=== PATIENT | female | born 1975 | race Caucasian/White ===

== ENCOUNTER → 2019-02-12 | Outpatient (CLI) | payer BC ==
[~2019-02-12] MED LIST: BUPR300T43 PO; DOCU100C37 PO; FLUO40CA PO; IBUP-1780 PO; LOSA1TAB26 PO; NALT1TAB PO; OMEP40CA36 PO; OXYC-465 PO; SPIR50TA4 PO
--- NOTE | 2019-02-12 11:36 | Diagnostic Imaging Report ---
INDICATION: Routine screening. COMPARISON: Comparison is made with prior mammograms from 10/06/2015 and 10/10/2013. 2-D and 3-D bilateral screening mammography was performed. The current study was also evaluated with a Computer Aided Detection (CAD) system. 3-D tomosynthesis was also performed and reviewed. FINDINGS: Scattered fibroglandular densities are identified bilaterally. No mass or malignant-appearing microcalcifications are seen. There are benign calcifications present. Axillae are unremarkable. IMPRESSION: No mammographic features suspicious for malignancy are identified. ACR BI-RADS Category 2: Benign findings. Result letter will be mailed to the patient. Note: At least 10% of breast cancer is not imaged by mammography. Dictated by: Dictated on workstation # [id number]
== END ==
LOC: RAD 07:59
PROVIDERS: ATTEND Nurse Practitioner
DX: Z12.31 Encounter for screening mammogram for malignant neoplasm of breast (principal)
CPT/HCPCS: 77067

== ENCOUNTER → 2021-03-06 | Outpatient (CLI) | payer BC, OTHER ==
[~2021-03-06] MED LIST changes: -OMEP40CA36 PO; +OMEP40CA6 PO; -OXYC-465 PO; +OXYC-556 PO
--- NOTE | 2021-03-06 09:06 | Diagnostic Imaging Report ---
PROCEDURE: CT abdomen and pelvis without contrast. TECHNIQUE: Multiple contiguous axial images were obtained through the abdomen and pelvis without the use of intravenous contrast. Auto Exposure Controls were utilized during the CT exam to meet ALARA standards for radiation dose reduction. INDICATION: Hematuria. COMPARISON: None FINDINGS: Included portions of the lung bases are clear. CT ABDOMEN: Kidneys have an unremarkable noncontrast CT appearance. No renal calculi are seen on either side. Ureters are difficult to follow in a contiguous fashion, but no calculi are seen along the expected course of ureters. Additionally, there is no hydronephrosis or other evidence of obstruction. The adrenal glands, spleen, pancreas, and liver have an unremarkable noncontrast CT appearance. There is no loculated fluid collection, free fluid or free air. No abnormal mesenteric or retroperitoneal adenopathy is seen. Small bowel loops are nondistended. Normal appendix is identified. Small fat-containing umbilical hernia is noted. Ostium measures 9 mm in diameter. There is also mild scattered calcified aortic arch atherosclerosis. Osseous structures show no acute abnormalities. CT PELVIS: Urinary bladder is opacified. No calculi are seen within urinary bladder. There is no loculated fluid collection, free fluid or free air within the pelvis. No abnormal lymph nodes are identified. Osseous structures show no acute abnormalities. IMPRESSION: 1. Unremarkable noncontrast CT of the kidneys and renal collecting systems. Dictated by: Dictated on workstation # [id number]
== END ==
LOC: RAD 08:30
PROVIDERS: ATTEND Nurse Practitioner Family
DX: N20.0 Calculus of kidney (principal)
CPT/HCPCS: 74176

== ENCOUNTER → 2021-03-09 | Outpatient (CLI) | payer OTHER ==
--- NOTE | 2021-03-09 15:33 | Diagnostic Imaging Report ---
INDICATION: History of ureteral calculus. COMPARISON: CT dated 03/06/2021. FINDINGS: Single frontal supine radiographic view of the abdomen was obtained. Small bowel loops are nondistended. There is no large collection of free intraperitoneal air. Extraosseous calcification seen projecting over the left psoas muscle just superior to the level of the left L5 transverse process. This, however, has shown to correspond to pelvic phlebolith when compared to CT of the abdomen and pelvis from 03/06/2021. No other suspicious extraosseous calcifications are seen. No unexpected radiopaque foreign bodies are identified. Osseous structures show no acute abnormalities. IMPRESSION: 1. No radiographic evidence of renal collecting system calculi. 2. Nonobstructed small bowel gas pattern. Dictated by: Dictated on workstation # [id number]
== END ==
LOC: RAD 14:12
PROVIDERS: ATTEND Urology
DX: N20.1 Calculus of ureter (principal)
CPT/HCPCS: 74018

== ENCOUNTER → 2022-11-09 | Outpatient (CLI) | payer OTHER, SELFPAY ==
--- NOTE | 2022-11-09 17:08 | Diagnostic Imaging Report ---
EXAMINATION: CT calcium scoring without contrast. TECHNIQUE: Multiple contiguous axial images were obtained through the chest without the use of intravenous contrast for purposes of calcium scoring. All CT scans use one or more of the following dose optimizing techniques: automated exposure control, MA and/or KvP adjustment based on patient size and exam type or iterative reconstruction. HISTORY: Calcium score. COMPARISON: None available. FINDINGS: The calculated coronary artery calcium score is 3. There is no lymphadenopathy in the chest. Heart size is normal. No pericardial effusion. Aorta is normal in caliber. Visualized portions of the lungs are clear. No osseus lesions are seen. IMPRESSION: 1. Calculated coronary artery calcium score of 3. Dictated by: Dictated on workstation # [id number]
== END ==
LOC: RAD 15:45
PROVIDERS: ATTEND Nurse Practitioner Family
DX: I87.2 Venous insufficiency (chronic) (peripheral) (principal); E66.9 Obesity, unspecified
CPT/HCPCS: 75571

== ENCOUNTER → 2022-11-25 | Outpatient (RCR) | payer BC | END | disposition home or self-care (01) | PROVIDERS: ATTEND Nurse Practitioner Family | DX: M43.16 Spondylolisthesis, lumbar region (principal); I10 Essential (primary) hypertension ==

== ENCOUNTER 2022-12-07 16:17 | Outpatient (RCR) | payer BC | END 2022-12-25 | disposition home or self-care (01) | PROVIDERS: ATTEND Nurse Practitioner Family | DX: M43.16 Spondylolisthesis, lumbar region (principal) ==